=== PATIENT | female | born 1935 | race Caucasian/White ===

== ENCOUNTER 2017-04-19 19:06 | Inpatient (IN) | payer MEDICARE, OTHER ==
[~2017-04-19] VITALS: Ht 160 cm; Wt 63.6 kg
--- NOTE | ~2017-04-19 | EKG ---
[place], [place] ELECTROCARDIOGRAM REPORT NAME: RICA PATRICIO UNIT #: [id number] ROOM: 525 DOCTOR: JAYLEN OLIVEROS MD BIRTHDATE: [birth year] DOS: 04/19/2017 TIME: 1951 IMPRESSION: Sinus tachycardia; inferior CT, age indeterminate, abnormal ECG. No prior EKGs to compare. Jaylen Oliveros MD CM:EKGRPT:ELECTROCARDIOGRAM REPORT 12 22 JAYLEN OLIVEROS MD
[2017-04-19 19:32] VITALS: BP 121/69
[2017-04-19 20:05] LABS: BASO % 0.2 % (0.0-1.0); HEMATOCRIT 42.1 % (37.0-47.0); HEMOGLOBIN 14.1 g/dl (12.0-16.0); LYMPH # 0.7 10*3/uL (1.3-4.4); LYMPH % 5.2 % (27.0-41.0); MEAN CELL VOLUME 85.7 fl (81.0-99.0); MEAN CORPUSCULAR HGB 28.7 pg (27.0-31.0); MEAN CORPUSCULAR HGB CONC 33.5 g/dl (33.0-37.0); MEAN PLATELET VOLUME 10.8 fl (9.6-12.3); MONO # 1.3 10*3/uL (0.1-1.0); MONO % 10.1 % (3.0-9.0); NEUT # 11.1 10*3/uL (2.3-7.9); NEUT % 84.1 % (47.0-73.0); PLATELET COUNT AUTOMATED 209 10*3/uL (130-400); RED BLOOD COUNT 4.91 10*6/uL (4.10-5.10); RED CELL DISTRI WIDTH 13.2 % (0-14.5); WHITE BLOOD COUNT 13.2 10*3/uL (4.8-10.8)
[2017-04-19 20:21] LABS: ALBUMIN 3.7 gm/dl (3.1-4.5); ALKALINE PHOSPHATASE 84 U/L (45-117); BUN 12 mg/dl (7-24); CHLORIDE 96 mmol/L (98-107); CREATININE 0.96 mg/dL (0.55-1.02); SGOT/AST 21 IU/L (3-35); SGPT/ALT 16 U/L (12-78); SODIUM 131 mmol/L (136-145); TOTAL PROTEIN 7.8 gm/dL (6.4-8.2)
[2017-04-19 20:22] LABS: TROPONIN I < 0.015 ng/ml (<0.045)
[2017-04-19 22:50] VITALS: BP 133/77
[2017-04-19 23:00] VITALS: BP 131/64
[2017-04-19] MEDS ORDERED: Synthroid,Lev100 MCG PO (23:13)
[2017-04-20] VITALS: BP 131/64
[2017-04-20 04:54] LABS: BILIRUBIN NEGATIVE (NEGATIVE); BLOOD TRACE-LYSED (NEGATIVE); CLARITY SL CLOUDY (CLEAR); COLOR YELLOW (YELLOW); GLUCOSE NEGATIVE (NEGATIVE); KETONE 1+ (NEGATIVE); LEUKO ESTERASE 2+ (NEGATIVE); NITRITE NEGATIVE (NEGATIVE); SPECIFIC GRAVITY 1.015 (1.005-1.030); UROBILINOGEN 0.2 E.U./dl (0.2-1.0)
[2017-04-20 05:06] LABS: EPITHELIAL CELLS 20-25
[2017-04-20 05:07] LABS: BACTERIA 1+
[2017-04-20 06:53] LABS: HEMATOCRIT 38.4 % (37.0-47.0); HEMOGLOBIN 12.8 g/dl (12.0-16.0); MEAN CELL VOLUME 87.3 fl (81.0-99.0); MEAN CORPUSCULAR HGB 29.1 pg (27.0-31.0); MEAN CORPUSCULAR HGB CONC 33.3 g/dl (33.0-37.0); MEAN PLATELET VOLUME 11.2 fl (9.6-12.3); PLATELET COUNT AUTOMATED 165 10*3/uL (130-400); RED CELL DISTRI WIDTH 13.2 % (0-14.5); WHITE BLOOD COUNT 9.2 10*3/uL (4.8-10.8)
[2017-04-20 07:10] LABS: ALKALINE PHOSPHATASE 65 U/L (45-117); BUN 12 mg/dl (7-24); CHLORIDE 102 mmol/L (98-107); CHOLESTEROL 167 mg/dL (<200); CREATININE 0.86 mg/dL (0.55-1.02); HDL CHOLESTEROL 71 mg/dl (40-60); LDL CHOLESTEROL 87 mg/dL (9-159); PHOSPHOROUS 2.5 mg/dL (2.5-4.9); SGOT/AST 25 IU/L (3-35); SGPT/ALT 12 U/L (12-78); SODIUM 136 mmol/L (136-145); TOTAL PROTEIN 6.6 gm/dL (6.4-8.2); TRIGLYCERIDES 47 mg/dl (<150); VLDL CHOLESTEROL 9 mg/dL (6-40)
[2017-04-20 07:13] LABS: INTERNATIONAL NORM RATIO 1.1 (2.0-3.5)
[2017-04-20 07:15] LABS: THYROID STIM HORMONE (HS) 0.706 uIU/ml (0.358-4.75)
[2017-04-20 07:30] LABS: BURR CELLS FEW; PLATELET SUFFICIENCY NORMAL (NORMAL); TOTAL CELLS COUNTED 100 #CELLS
[2017-04-20 07:50] LABS: VITAMIN D, 25-HYDROXY 11.7 ng/mL (30-100)
[2017-04-20 08:00] VITALS: BP 107/53
[2017-04-20 12:00] VITALS: BP 114/49
[2017-04-20 16:00] VITALS: BP 111/63
[2017-04-20 20:00] VITALS: BP 110/52
[2017-04-21] VITALS: BP 103/49
[2017-04-21 08:00] VITALS: BP 108/55
[2017-04-21 12:00] VITALS: BP 105/46
[2017-04-21] MEDS ORDERED: DOXYCYCLINE100 M3 PO (14:09)
[2017-04-21] MEDS ORDERED: PREDNISONE10 MG PO (14:09)
[2017-04-21] MEDS ORDERED: VITAMIN D-32000 UNI1 PO (14:09)
[2017-04-21 16:00] VITALS: BP 123/62
[2017-04-23 00:04] LABS: ADENOVIRUS Negative (Negative); INFLUENZA A Negative (Negative); INFLUENZA B Negative (Negative); METAPNEUMOVIRUS Negative (Negative); PARAINFLUENZA 1 Negative (Negative); PARAINFLUENZA 2 Negative (Negative); PARAINFLUENZA 3 Negative (Negative); RHINOVIRUS Negative (Negative); RSV A Negative (Negative); RSV B Positive (Negative)
== END 2017-04-21 17:19 | disposition home or self-care (01) | DRG 871 ==
LOC: ED 19:06 → 5E 22:04 → EDHOLD 22:04 → 5E 22:12
PROVIDERS: Hospitalist; Student in an Organized Health Care Education/Training Program
DX: A41.9 Sepsis, unspecified organism (principal); J18.9 Pneumonia, unspecified organism; E44.0 Moderate protein-calorie malnutrition; E87.1 Hypo-osmolality and hyponatremia; E87.8 Other disorders of electrolyte and fluid balance, not elsewhere classified; Z96.649 Presence of unspecified artificial hip joint; R73.9 Hyperglycemia, unspecified; E55.9 Vitamin D deficiency, unspecified; E03.9 Hypothyroidism, unspecified; Z90.710 Acquired absence of both cervix and uterus; Z87.81 Personal history of (healed) traumatic fracture; Z82.49 Family history of ischemic heart disease and other diseases of the circulatory system; Z82.3 Family history of stroke; Z80.9 Family history of malignant neoplasm, unspecified; Z79.899 Other long term (current) drug therapy; Z98.41 Cataract extraction status, right eye; Z68.24 Body mass index [BMI] 24.0-24.9, adult

== ENCOUNTER 2017-05-08 12:04 | Inpatient (IN) | payer MEDICARE, OTHER ==
[~2017-05-08] VITALS: Ht 160 cm; Wt 63.5 kg
--- NOTE | ~2017-05-08 | EKG ---
[place], [place] ELECTROCARDIOGRAM REPORT NAME: RICA PATRICIO UNIT #: [id number] ROOM: 405 DOCTOR: RIA VALLADARES MD BIRTHDATE: [birth year] DOS: 05/08/2017 TIME: 1226 hours. Sinus tachycardia at 103 beats per minute. An old inferior wall myocardial infarction. An abnormal ECG. No previous tracing is available for comparison. RIA VALLADARES MD CM:EKGRPT:ELECTROCARDIOGRAM REPORT [id number] RIA VALLADARES MD
--- NOTE | ~2017-05-08 | PR ---
[place], [place] PROGRESS NOTE NAME: RICA PATRICIO [facility] #: [id number] UNIT #: [id number] ROOM: 405 DOCTOR: ISAI URENA MD,KAREN BIRTHDATE: [birth year] DOS: 05/11/2017 The patient is independently seen and examined in [id number] encounter. History was confirmed. Physical examination was performed. Assessment and management of the patient's today's note was personally completed. The note done by the medical representative was approved as well. SUBJECTIVE: The patient reported symptoms of cough, which has been described to be nonproductive at this time. Denies symptoms of chest pain or hemoptysis. Overall, reduction of the respiratory symptoms of the patient was described. PHYSICAL EXAMINATION: VITAL SIGNS: Temperature normal, respiratory rate of 18, heart rate 88, blood pressure normal. The pulse oxygen saturation on room air is 96% saturation. LUNGS: Occasional scattered crackles in the lung bases. There was no wheezing. ABDOMEN: Soft, nontender. EXTREMITIES: Without any edema. SKIN: Visible skin, no lesions or rashes. MUSCULOSKELETAL: Without any acute deformities. CENTRAL NERVOUS SYSTEM: Cranial nerves 2-12 intact. No focal deficits. IMAGING STUDIES AND LABORATORY DATA: Chest x-ray of the patient that was done this morning for the patient 2-view was personally reviewed, shows partial reduction of previous infiltration, the resolution was noted incomplete. Vancomycin trough level was noted 7.5. IMPRESSION AND PLAN: The patient with clinical resolution of the pneumonia noted with some radiological resolution as well. Because of the lack of any additional culture supporting the broad spectrum intravenous antibiotic, the patient will be continued on Levaquin as the only antibiotic. Continue corticosteroids; however, the dose will be decreased to 40 mg b.i.d. for the medical management of the suspected cryptogenic organizing pneumonia. However, with reduction of the corticosteroids, closely monitor respiratory symptom. The patient has not been noted with any other acute abnormality or side effect related to current medication use. Usual care. She refused the bronchoscopy, so accurate culture for further assessment could not be performed and there was no sputum culture done for this patient as the patient's cough has been currently noted nonproductive. [place], [place] PROGRESS NOTE NAME: RICA PATRICIO Carl [facility] #: [id number] UNIT #: [id number] ROOM: 405 DOCTOR: KAREN PRAJAPATI MD BIRTHDATE: [birth year] KAREN ALEX MD CM:PNTRANS [id number] KAREN URENA MD 05/12/17 0120 interface
--- NOTE | ~2017-05-08 | CON ---
[place], [place] REPORT OF CONSULTATION NAME: RICA PATRICIO [facility] #: [id number] UNIT #: [id number] ROOM: 405 DOCTOR: KAREN PRAJAPATI MD BIRTHDATE: [birth year] DOS: 05/09/2017 CONSULTATION REQUESTED BY: Hospitalist Service. REASON FOR CONSULTATION: Assessment of the acute pneumonia. HISTORY OF PRESENT ILLNESS: This is a 81-year-old white female patient who was reported having ongoing symptoms for the past few weeks. The symptom was started with gradual worsening in the beginning of April. She has been admitted in this hospital on 04/19/2017 until 04/21/2017 and treated at that time for the acute pneumonia as described by the patient. The patient stated the symptoms have been noted progressively worsened and not resolved with increased coughing. The coughing has been noted severe with chest congestion with inability to expectorate sputum. The symptoms were associated with wheezing as well. Denies any symptoms of chest pain, but chest tightness was reported. The patient denies any symptoms of hemoptysis. Denies symptoms of chest trauma. She has been readmitted to the hospital on 05/08/2017 for the medical management of the current acute symptoms. REVIEW OF SYSTEMS: CONSTITUTIONAL SYMPTOMS: Fatigue and tiredness reported. No symptoms of fever or chills. EYES: Denies any burning, redness, or tenderness. EARS, NOSE, AND THROAT SYMPTOMS: Denies sore throat, hoarseness, otalgia, or postnasal drainage. CARDIOVASCULAR: The patient does complain of some sinus pressures. GASTROINTESTINAL: Denies dysphagia, nausea, vomiting, diarrhea, abdominal pain, hematemesis, melena, or hematochezia. GENITOURINARY SYMPTOMS: Denies dysuria, suprapubic pain, or hematuria. CENTRAL NERVOUS SYSTEM: Denies any symptoms of headache. The patient is complaining of dizziness yesterday and double vision upon awakening, which has been resolved. SKIN: Denies any lesions or rashes. MUSCULOSKELETAL: Denies acute joint pain at this time, but reported with muscular pain and some joint pain on admission seemed to be better. The rest of the symptoms were reviewed. They were noted all negative. PAST MEDICAL HISTORY: Reported: 1. History of hypothyroidism. 2. Vitamin D deficiency. 3. Recent admission in 04/2017 for the medical management of acute pneumonia. PAST SURGICAL HISTORY: Reported as: 1. Complete hysterectomy. 2. Surgery on the hip. The hip surgery was done bilateral after fracture. SOCIAL HISTORY: The patient is a nonsmoker lifetime. Lives at home, and has 6 children. There was no history of the occupation-related pulmonary exposure or any inhalation of dust. [place], [place] REPORT OF CONSULTATION NAME: RCIA PATRICIO UNIT #: [id number] ROOM: 405 DOCTOR: KAREN PRAJAPATI MD BIRTHDATE: [birth year] FAMILY HISTORY: Father at the age of 6666 years old of complication of metastatic prostate cancer. Mother at 66 years old of complication-related hypertension. HOME MEDICATIONS: Noted as use of vitamin D and Synthroid. DRUG ALLERGY HISTORY: Noted no known drug allergies. PHYSICAL EXAMINATION: GENERAL: This is a 81-year-old white female who appeared to have a cough with chest congestion at the time of the assessment this morning. She does not have signs of acute respiratory distress. VITAL SIGNS: Height were recorded by the nursing staff for the current admission with height of 5 feet 3 inches, weight of 140 pounds, BMI 24.8. Vital signs as a normal temperature, respiratory rate 18-20, heart rate 91-76, blood pressure 116/44-111/49. The pulse oxygen saturation on 2 liters nasal cannula 92% saturation. HEENT: Head was atraumatic. Eyes nonicterus. Oral mucosa was moist. NECK: Supple. CARDIOVASCULAR: S1, S2 audible. LUNGS: Noted with coarse crackles heard in the mid to lower portion of the right lung. Scattered wheezing. ABDOMEN: Soft, nontender. EXTREMITIES: No edema, clubbing, or cyanosis. MUSCULOSKELETAL SYMPTOMS: Without any acute deformities. CENTRAL NERVOUS SYSTEM: Intact. Cranial nerves 2-12 intact. LABORATORY DATA: The CMP on admission yesterday - BUN and creatinine were normal, sodium 133. LFTs were normal. PT/PTT yesterday were normal. Lactic acid yesterday 2.8, followup 1.6. CBC of 05/08/2017 - WBC count 15.6, hemoglobin and hematocrit normal, platelet count was normal. The ordered differential was noted as 89% neutrophils. The CBC of 05/09/2017 today - WBC count 12.4, remaining CBC was normal with 85% neutrophils. CMP this morning - BUN and creatinine normal, sodium was normal. Review of the radiology data - CT of the head on 05/08/2017 was described without any acute intracranial abnormalities. The chest x-ray that was done on past admission on 04/19/2017, bilateral basilar areas of infiltration was noted. Only one-view chest x-ray was done. The chest x-ray that was done yesterday shows increased area of infiltration in the lower lungs. The chest CT scan was obtained yesterday ____ in the lower lungs bilaterally. IMPRESSION: The patient who has been currently admitted to the hospital noted with previous treatment for presumed acute pneumonia. The nasal washing antigen negative with current worsening, suggestive of acute pneumonia with bacteria, normal bacterial etiology would be considered. The patient has been treated with appropriate antibiotic, previous Levaquin and doxycycline that had not resulted in resolution of symptoms completely with increased symptoms noted. Wheezing was noted, most likely secondary bronchospasm, current acute ongoing pulmonary infection and not noted with finding of bronchial asthma. [place], [place] REPORT OF CONSULTATION NAME: RICA PATRICIO Carl UNIT #: [id number] ROOM: 405 DOCTOR: ISAI URENA MD,[facility] BIRTHDATE: [birth year] PLAN OF TREATMENT: The patient has been started on Solu-Medrol. We should able to treat current differential diagnosis cryptogenic organizing pneumonia or acute eosinophilic pneumonia. The dose; however, will be increased to 60 mg q.8 hours for the patient at least 24 hours or greater, then further reduced. She has been started on 3 different antibiotics - Levaquin, vancomycin and Rocephin. Reduction of the antibiotic de-escalation will be done based on the improvement in the symptoms. The sputum for Gram-stain culture has been ordered. Bronchodilator to help mobilize secretions as well. Use of the flutter valve to help mobilize secretion. Consider bronchoscopy for further assessment of the lower portion of the lung with more accurate culture assessment as well. Supportive care. Other therapy, plan of management and care. The urine for legionella antigen will be ordered. Urine for streptococcal pneumonia antigen will be obtained as well. IgE level was ordered as well. Thank you for allowing me to participate in the care of this patient. KAREN ALEX MD CM:CONSTR:REPORT OF CONSULTATION 1328 05/10/17 0407 interface
--- NOTE | ~2017-05-08 | PR ---
[place], [place] PROGRESS NOTE NAME: RICA PATRICIO [facility] #: [id number] UNIT #: [id number] ROOM: 405 DOCTOR: ISAI URENA MD,KAREN BIRTHDATE: [birth year] DOS: 05/10/2017 SUBJECTIVE: The patient was still reported with coughing. The patient's symptoms of shortness of breath have been decreased. Denies any chest pain. Denies symptoms of hemoptysis, headache, nausea, vomiting, diarrhea, or abdominal pain. She denies any symptoms of edema or pain of the lower extremities. She is comfortably, resting, sitting on the bed. OBJECTIVE: VITAL SIGNS: Normal temperature, respiratory rate 18, heart rate 102, blood pressure 129/52. The pulse oxygen saturation on room air 93% saturation. HEENT: No acute change. NECK: Supple. CARDIOVASCULAR: S1, S2 audible. LUNGS: Scattered crackles of the lung noted, greater on the right than the left side. There was no wheezing. ABDOMEN: Soft, nontender. EXTREMITIES: Without any acute edema. SKIN: Visible skin, no lesions or rashes. MUSCULOSKELETAL: No deformities. LABORATORY DATA: The patient's CBC today, WBC count 12.8, hemoglobin 11.9, hematocrit 36.5, platelet count was normal. The CMP of the patient this morning, normal BUN and creatinine. Albumin 2.7. Blood culture from 05/08/2017 showed no bacterial growth. IMPRESSION: Multiple areas of infiltration was noted for this patient on current admission with acute bacterial pneumonia, which has been treated with antibiotics with partial improvement noted and respiratory symptom reduction. The organism isolation so far has not been available. The diagnosis of cryptogenic organizing pneumonia was also considered at this time. The patient was treated with corticosteroids. The dose of corticosteroids was increased yesterday to 60 mg q. 8 hours. PLAN OF TREATMENT: Continue current therapy, plan of management, bronchodilators, oxygen supplementation, corticosteroids. She was suggested for fiberoptic bronchoscopy, which would be helpful to differentiate her current problem, more accurately [place] pneumonia and to modify the therapy accordingly; however, the patient does not wish to have any procedure done at this time and would like to be treated conservatively. Based on her wishes, the patient will be continued on current therapy, plan and management, changes in medical management will be done accordingly to the needs. [place], [place] PROGRESS NOTE NAME: RICA PATRICIO UNIT #: [id number] ROOM: 405 DOCTOR: KAREN PRAJAPATI MD BIRTHDATE: [birth year] KAREN ALEX MD CM:PNTRANS [id number] KAREN URENA MD 05/11/1736 interface
--- NOTE | ~2017-05-08 | PR ---
[place], [place] PROGRESS NOTE NAME: RICA PATRICIO UNIT #: [id number] ROOM: 405 DOCTOR: JAMEY JARAMILLO DO BIRTHDATE: [birth year] DOS: 05/11/2017 SUBJECTIVE: The patient is seen and examined at bedside. The patient is sitting upright. The patient reports that her respiratory symptoms have improved and she no longer has a productive cough; however, she does have mild persistent cough. The patient denies any shortness of breath at this time, no new complaints. OBJECTIVE: VITAL SIGNS: Temperature 97.5, pulse is 88, respirations 16, blood pressure 109/57, pulse ox is 96% on room air. GENERAL APPEARANCE: Awake, alert and oriented x 3, no acute distress. HEENT: Right eye was occluded with an eye patch. Left eye was clear. No injection. Nares are patent. Mucous membranes are moist. NECK: Supple, nontender. CARDIOVASCULAR: Regular rate and rhythm. No murmurs, gallops or rubs. PULMONARY: Clear to auscultation. No wheezes, rales or rhonchi. ABDOMEN: Soft, nontender with positive bowel sounds. Blood cultures and sputum cultures remain negative. Chest x-ray this morning showed mild to moderate posterior basilar pneumonia bilaterally, stable compared to a CT from May 08. IMPRESSIONS: 1. Multiple areas infiltration, likely secondary to acute bacterial pneumonia. 2. Double vision. 3. Severe protein-calorie malnutrition. TREATMENT PLAN: The steroids will be titrated down to 40 b.i.d. and the antibiotics will be deescalated to Levaquin only. Continue with the bronchodilators for shortness of breath. We will continue to follow. The patient will likely be stable and ready for discharge, possibly tomorrow. The patient continues to improve. JAMEY JARAMILLO DO [place], [place] PROGRESS NOTE NAME: RICA PATRICIO UNIT #: [id number] ROOM: 405 DOCTOR: JAMEY JARAMILLO DO BIRTHDATE: [birth year] KAREN ALEX MD CM:SAMUEL [id number] JAMEY JARAMILLO DO 05/11/17 232 interface
--- NOTE | ~2017-05-08 | PR ---
[place], [place] PROGRESS NOTE NAME: RICA PATRICIO [facility] #: [id number] UNIT #: [id number] ROOM: 405 DOCTOR: ISAI URENA MD,KAREN BIRTHDATE: [birth year] DOS: 05/12/2017 SUBJECTIVE: She has been still noted coughing, which has been gradually subsiding. Denies symptoms of chest pain. Denies any symptoms of wheezing. Stated that she has been feeling better. OBJECTIVE: VITAL SIGNS: Normal temperature, respiratory rate 20, heart rate 94, blood pressure 125/65, pulse oxygen saturation on room air 93% saturation. HEENT: No acute change. NECK: Supple. CARDIOVASCULAR: S1, S2 audible. LUNGS: Scattered crackles in the lungs. The patient with scattered expiratory wheezing. EXTREMITIES: Without any acute edema. IMPRESSION: Resolving acute exacerbation of chronic obstructive pulmonary disease as well as acute bilateral pneumonia for this patient slowly. The cough and wheezing was still noted, but gradually improving. PLAN OF MANAGEMENT: The patient could be discharged home. Tapering dose of prednisone and antibiotics orally with bronchodilators. The patient does not wish to get the bronchoscopy done and conservative treatment will be advised for the patient upon discharge. KAREN ALEX MD CM:PNTRANS 40 KAREN URENA MD 05/12/172039 interface
[~2017-05-08 12:04] MED LIST: DOXYCYCLINE100 M3 PO; PREDNISONE10 MG PO; Synthroid,Lev100 MCG PO; VITAMIN D-32000 UNI1 PO
[2017-05-08 12:08] VITALS: BP 134/64
[2017-05-08] MEDS ORDERED: ASPIRIN325 M2 PO (12:09)
[2017-05-08 12:23] VITALS: BP 122/71
[2017-05-08 13:04] LABS: BASO % 0.2 % (0.0-1.0); EOS % 0.1 % (1.0-4.0); HEMATOCRIT 45.6 % (37.0-47.0); HEMOGLOBIN 14.9 g/dl (12.0-16.0); LYMPH # 0.7 10*3/uL (1.3-4.4); LYMPH % 4.5 % (27.0-41.0); MEAN CELL VOLUME 87.4 fl (81.0-99.0); MEAN CORPUSCULAR HGB 28.5 pg (27.0-31.0); MEAN CORPUSCULAR HGB CONC 32.7 g/dl (33.0-37.0); MONO # 0.9 10*3/uL (0.1-1.0); MONO % 5.6 % (3.0-9.0); NEUT # 13.9 10*3/uL (2.3-7.9); NEUT % 89.2 % (47.0-73.0); PLATELET COUNT AUTOMATED 234 10*3/uL (130-400); RED BLOOD COUNT 5.22 10*6/uL (4.10-5.10); RED CELL DISTRI WIDTH 13.9 % (0-14.5); WHITE BLOOD COUNT 15.6 10*3/uL (4.8-10.8)
[2017-05-08 13:13] LABS: ACT PARTIAL THROMBO TIME 25.1 SECONDS (20.8-31.5)
[2017-05-08 13:20] LABS: ALBUMIN 3.4 gm/dl (3.1-4.5); ALKALINE PHOSPHATASE 106 U/L (45-117); BUN 12 mg/dl (7-24); CHLORIDE 99 mmol/L (98-107); CREATININE 0.85 mg/dL (0.55-1.02); LIPASE 157 U/L (73-393); POTASSIUM 4.2 mmol/L (3.5-5.1); SGOT/AST 14 IU/L (3-35); SGPT/ALT 18 U/L (12-78); SODIUM 133 mmol/L (136-145); TOTAL PROTEIN 7.5 gm/dL (6.4-8.2)
[2017-05-08 13:26] LABS: TROPONIN I < 0.015 ng/ml (<0.045)
[2017-05-08 14:46] VITALS: BP 124/60
[2017-05-08 15:30] VITALS: BP 113/58
[2017-05-08 16:00] VITALS: BP 113/58
[2017-05-08 20:00] VITALS: BP 96/69
[2017-05-09] VITALS: BP 116/44
[2017-05-09 07:51] LABS: BASO % 0.2 % (0.0-1.0); EOS # 0.1 10*3/uL (0.0-0.4); EOS % 0.5 % (1.0-4.0); LYMPH # 0.9 10*3/uL (1.3-4.4); LYMPH % 7.6 % (27.0-41.0); MEAN CELL VOLUME 86.3 fl (81.0-99.0); MEAN CORPUSCULAR HGB 28.5 pg (27.0-31.0); MEAN CORPUSCULAR HGB CONC 33.1 g/dl (33.0-37.0); MONO # 0.7 10*3/uL (0.1-1.0); MONO % 5.8 % (3.0-9.0); NEUT # 10.6 10*3/uL (2.3-7.9); NEUT % 85.3 % (47.0-73.0); PLATELET COUNT AUTOMATED 207 10*3/uL (130-400); RED BLOOD COUNT 4.31 10*6/uL (4.10-5.10); WHITE BLOOD COUNT 12.4 10*3/uL (4.8-10.8)
[2017-05-09 07:52] LABS: HEMATOCRIT 37.2 % (37.0-47.0); HEMOGLOBIN 12.3 g/dl (12.0-16.0)
[2017-05-09 08:00] VITALS: BP 111/49
[2017-05-09 08:22] LABS: ALBUMIN 2.6 gm/dl (3.1-4.5); BUN 9 mg/dl (7-24); CHLORIDE 105 mmol/L (98-107); CHOLESTEROL 168 mg/dL (<200); CREATININE 0.67 mg/dL (0.55-1.02); POTASSIUM 3.7 mmol/L (3.5-5.1); SGOT/AST 12 IU/L (3-35); SODIUM 137 mmol/L (136-145)
[2017-05-09 08:29] LABS: ALKALINE PHOSPHATASE 82 U/L (45-117); HDL CHOLESTEROL 62 mg/dl (40-60); LDL CHOLESTEROL 90 mg/dL (9-159); SGPT/ALT 12 U/L (12-78); TOTAL PROTEIN 5.9 gm/dL (6.4-8.2); TRIGLYCERIDES 79 mg/dl (<150); VLDL CHOLESTEROL 16 mg/dL (6-40)
[2017-05-09 09:54] LABS: VITAMIN D, 25-HYDROXY 9.1 ng/mL (30-100)
[2017-05-09 12:00] VITALS: BP 114/50
[2017-05-09 16:00] VITALS: BP 103/65
[2017-05-09 20:00] VITALS: BP 120/74
[2017-05-10] VITALS: BP 106/57
[2017-05-10 06:16] LABS: ALBUMIN 2.7 gm/dl (3.1-4.5); ALKALINE PHOSPHATASE 94 U/L (45-117); BUN 9 mg/dl (7-24); CHLORIDE 105 mmol/L (98-107); CREATININE 0.91 mg/dL (0.55-1.02); PHOSPHOROUS 2.1 mg/dL (2.5-4.9); POTASSIUM 4.2 mmol/L (3.5-5.1); SGOT/AST 11 IU/L (3-35); SGPT/ALT 13 U/L (12-78); SODIUM 139 mmol/L (136-145); TOTAL PROTEIN 6.6 gm/dL (6.4-8.2)
[2017-05-10 06:42] LABS: HEMATOCRIT 36.5 % (37.0-47.0); HEMOGLOBIN 11.9 g/dl (12.0-16.0); MEAN CELL VOLUME 86.7 fl (81.0-99.0); MEAN CORPUSCULAR HGB 28.3 pg (27.0-31.0); MEAN CORPUSCULAR HGB CONC 32.6 g/dl (33.0-37.0); MEAN PLATELET VOLUME 11.5 fl (9.6-12.3); PLATELET COUNT AUTOMATED 233 10*3/uL (130-400); RED BLOOD COUNT 4.21 10*6/uL (4.10-5.10); WHITE BLOOD COUNT 12.8 10*3/uL (4.8-10.8)
[2017-05-10 07:12] LABS: TOTAL CELLS COUNTED 100 #CELLS
[2017-05-10 07:13] LABS: ACANTHOCYTES FEW; BURR CELLS MODERATE; PLATELET SUFFICIENCY NORMAL (NORMAL)
[2017-05-10 08:00] VITALS: BP 111/51
[2017-05-10 12:00] VITALS: BP 129/52
[2017-05-10 16:00] VITALS: BP 119/58
[2017-05-10 20:00] VITALS: BP 104/49
[2017-05-11] VITALS: BP 120/87
[2017-05-11 07:50] VITALS: BP 124/72
[2017-05-11 11:50] VITALS: BP 109/57
[2017-05-11 16:00] VITALS: BP 129/63
[2017-05-11 20:00] VITALS: BP 115/57
[2017-05-12] VITALS: BP 119/54
[2017-05-12 07:33] VITALS: BP 125/65
[2017-05-12] MEDS ORDERED: MUCINEX ER600 MG PO (09:22)
[2017-05-12] MEDS ORDERED: LEVAQUIN750 M1 PO (09:22)
== END 2017-05-12 11:05 | disposition home or self-care (01) | DRG 871 ==
LOC: ED 12:04 → 4E 14:15 → EDHOLD 14:15 → 4E 14:25
PROVIDERS: Emergency Medicine; Internal Medicine; Registered Nurse
DX: A41.9 Sepsis, unspecified organism (principal); E43 Unspecified severe protein-calorie malnutrition; J15.9 Unspecified bacterial pneumonia; J44.1 Chronic obstructive pulmonary disease with (acute) exacerbation; J44.0 Chronic obstructive pulmonary disease with (acute) lower respiratory infection; R65.20 Severe sepsis without septic shock; E03.9 Hypothyroidism, unspecified; R53.83 Other fatigue; E55.9 Vitamin D deficiency, unspecified; D72.828 Other elevated white blood cell count; H53.2 Diplopia; Z68.24 Body mass index [BMI] 24.0-24.9, adult; Z90.710 Acquired absence of both cervix and uterus; Z98.41 Cataract extraction status, right eye; Z82.49 Family history of ischemic heart disease and other diseases of the circulatory system; Z82.3 Family history of stroke; Z80.42 Family history of malignant neoplasm of prostate; Z79.899 Other long term (current) drug therapy; Z87.828 Personal history of other (healed) physical injury and trauma

== ENCOUNTER → 2017-07-06 | Outpatient (CLI) | payer MEDICARE, OTHER ==
[~2017-07-06] MED LIST changes: +ASPIRIN325 M2 PO; +LEVAQUIN750 M1 PO; +MUCINEX ER600 MG PO
[2017-07-06 11:53] LABS: ALBUMIN 3.7 gm/dl (3.1-4.5)
[2017-07-06 12:01] LABS: FREE T4 1.2 ng/dl (0.76-1.46); THYROID STIM HORMONE (HS) 2.3 uIU/ml (0.358-4.75)
[2017-07-06 12:12] LABS: PTH INTACT 119.1 pg/mL (14.0-72.0)
== END | disposition home or self-care (01) ==
LOC: LAB 11:04
PROVIDERS: Internal Medicine
DX: E03.9 Hypothyroidism, unspecified (principal); E55.9 Vitamin D deficiency, unspecified

== ENCOUNTER → 2018-10-05 | Outpatient (CLI) | payer MEDICARE, OTHER ==
[~2018-10-05] MED LIST changes: +SEPTDS PO
== END | disposition home or self-care (01) ==
LOC: ORTHO 00:32
DX: S42.295D Other nondisplaced fracture of upper end of left humerus, subsequent encounter for fracture with routine healing (principal); X58.XXXD Exposure to other specified factors, subsequent encounter

== ENCOUNTER → 2018-11-06 | Outpatient (CLI) | payer MEDICARE, OTHER | END | disposition home or self-care (01) | LOC: ORTHO 01:50 | DX: S42.295D Other nondisplaced fracture of upper end of left humerus, subsequent encounter for fracture with routine healing (principal); X58.XXXD Exposure to other specified factors, subsequent encounter ==

== ENCOUNTER 2020-10-10 06:45 | Inpatient (IN) | payer MEDICARE, OTHER ==
[~2020-10-10] VITALS: Ht 160 cm; Wt 73.0 kg
[2020-10-10] VITALS (12 sets, daily range): BP systolic 103–129; BP diastolic 44–77
[2020-10-10 07:22] LABS: BASO % 0.6 % (0.0-1.0); EOS # 0.2 10*3/uL (0.0-0.4); EOS % 3.9 % (1.0-4.0); HEMATOCRIT 35.4 % (37.0-47.0); LYMPH # 1.5 10*3/uL (1.3-4.4); LYMPH % 31.3 % (27.0-41.0); MEAN CELL VOLUME 87.4 fl (81.0-99.0); MEAN CORPUSCULAR HGB 28.4 pg (27.0-31.0); MEAN CORPUSCULAR HGB CONC 32.5 g/dl (33.0-37.0); MEAN PLATELET VOLUME 10.6 fl (9.6-12.3); MONO # 0.6 10*3/uL (0.1-1.0); MONO % 11.9 % (3.0-9.0); NEUT # 2.5 10*3/uL (2.3-7.9); NEUT % 51.9 % (47.0-73.0); PLATELET COUNT AUTOMATED 193 10*3/uL (130-400); RED BLOOD COUNT 4.05 10*6/uL (4.10-5.10); RED CELL DISTRI WIDTH 13.9 % (0-14.5); WHITE BLOOD COUNT 4.9 10*3/uL (4.8-10.8)
[2020-10-10 07:38] LABS: ACT PARTIAL THROMBO TIME 24.9 SECONDS (20.0-32.1); INTERNATIONAL NORM RATIO 1.1 (2.0-3.5)
[2020-10-10 07:42] LABS: ALBUMIN 2.8 gm/dl (3.1-4.5); ALKALINE PHOSPHATASE 54 U/L (45-117); BUN 17 mg/dl (7-24); CHLORIDE 112 mmol/L (98-107); CREATININE 0.82 mg/dL (0.55-1.02); POTASSIUM 3.1 mmol/L (3.5-5.1); SGOT/AST 13 IU/L (3-35); SGPT/ALT 14 U/L (12-78); SODIUM 139 mmol/L (136-145); TOTAL PROTEIN 5.6 gm/dL (6.4-8.2)
[2020-10-10] MEDS ORDERED: LEVOTHYROXINE125 MCG PO (10:12)
[2020-10-10 13:37] LABS: BASO % 0.3 % (0.0-1.0); EOS % 0.6 % (1.0-4.0); HEMATOCRIT 37.8 % (37.0-47.0); LYMPH % 14.4 % (27.0-41.0); MEAN CELL VOLUME 88.9 fl (81.0-99.0); MEAN CORPUSCULAR HGB 28.5 pg (27.0-31.0); MEAN PLATELET VOLUME 10.7 fl (9.6-12.3); MONO # 0.5 10*3/uL (0.1-1.0); MONO % 6.9 % (3.0-9.0); NEUT # 5.4 10*3/uL (2.3-7.9); NEUT % 77.4 % (47.0-73.0); PLATELET COUNT AUTOMATED 181 10*3/uL (130-400); RED BLOOD COUNT 4.25 10*6/uL (4.10-5.10); RED CELL DISTRI WIDTH 13.9 % (0-14.5); WHITE BLOOD COUNT 6.9 10*3/uL (4.8-10.8)
[2020-10-11] VITALS: BP 118/52
[2020-10-11 05:48] LABS: ALBUMIN 3.2 gm/dl (3.1-4.5); ALKALINE PHOSPHATASE 58 U/L (45-117); BUN 12 mg/dl (7-24); CHLORIDE 111 mmol/L (98-107); CHOLESTEROL 205 mg/dL (<200); CREATININE 0.83 mg/dL (0.55-1.02); FREE T4 1.02 ng/dl (0.76-1.46); LDL CHOLESTEROL 131 mg/dL (9-159); SGOT/AST 13 IU/L (3-35); SGPT/ALT 17 U/L (12-78); SODIUM 138 mmol/L (136-145); TOTAL PROTEIN 6.1 gm/dL (6.4-8.2); TRIGLYCERIDES 85 mg/dl (<150)
[2020-10-11 05:53] LABS: POTASSIUM 4.2 mmol/L (3.5-5.1)
[2020-10-11 05:54] LABS: BASO % 0.5 % (0.0-1.0); EOS # 0.2 10*3/uL (0.0-0.4); EOS % 4.2 % (1.0-4.0); HEMATOCRIT 36.6 % (37.0-47.0); LYMPH # 1.6 10*3/uL (1.3-4.4); LYMPH % 28.7 % (27.0-41.0); MEAN CELL VOLUME 88.2 fl (81.0-99.0); MEAN CORPUSCULAR HGB 28.7 pg (27.0-31.0); MEAN CORPUSCULAR HGB CONC 32.5 g/dl (33.0-37.0); MEAN PLATELET VOLUME 11.3 fl (9.6-12.3); MONO # 0.8 10*3/uL (0.1-1.0); MONO % 13.3 % (3.0-9.0); NEUT % 52.9 % (47.0-73.0); PLATELET COUNT AUTOMATED 206 10*3/uL (130-400); RED BLOOD COUNT 4.15 10*6/uL (4.10-5.10); RED CELL DISTRI WIDTH 14.3 % (0-14.5); WHITE BLOOD COUNT 5.7 10*3/uL (4.8-10.8)
[2020-10-11 06:29] LABS: VITAMIN D, 25-HYDROXY 34.4 ng/mL (30-100)
[2020-10-11 08:00] VITALS: BP 137/71
== END 2020-10-11 11:49 | disposition home or self-care (01) | DRG 811 ==
LOC: ED 06:45 → EDHOLD 08:00 → 4E 08:16
PROVIDERS: Internal Medicine; Registered Nurse; ADMIT Internal Medicine; ATTEND Internal Medicine
PROC: 30233N1 Transfusion of Nonautologous Red Blood Cells into Peripheral Vein, Percutaneous Approach (ICD-10-PCS; principal; 2020-10-10)
DX: D50.0 Iron deficiency anemia secondary to blood loss (chronic) (principal); E43 Unspecified severe protein-calorie malnutrition; E87.6 Hypokalemia; E87.8 Other disorders of electrolyte and fluid balance, not elsewhere classified; E55.9 Vitamin D deficiency, unspecified; S81.801A Unspecified open wound, right lower leg, initial encounter; E03.9 Hypothyroidism, unspecified; Z90.710 Acquired absence of both cervix and uterus; Z98.41 Cataract extraction status, right eye; Z82.49 Family history of ischemic heart disease and other diseases of the circulatory system; Z82.3 Family history of stroke; Z80.42 Family history of malignant neoplasm of prostate; X58.XXXA Exposure to other specified factors, initial encounter; Y93.89 Activity, other specified; Y92.89 Other specified places as the place of occurrence of the external cause; Y99.8 Other external cause status; Z68.28 Body mass index [BMI] 28.0-28.9, adult

== ENCOUNTER 2021-06-01 16:04 | Inpatient (IN) | payer MEDICARE, OTHER ==
[~2021-06-01] VITALS: Ht 160 cm; Wt 69.9 kg
[~2021-06-01 16:04] MED LIST changes: +LEVOTHYROXINE125 MCG PO
[2021-06-01 16:17] VITALS: BP 118/65
[2021-06-01 17:14] LABS: HEMATOCRIT 40.1 % (37.0-47.0); MANUAL DIFF REFLEX YES; MEAN CELL VOLUME 82.9 fl (81.0-99.0); MEAN CORPUSCULAR HGB 26.7 pg (27.0-31.0); MEAN CORPUSCULAR HGB CONC 32.2 g/dl (33.0-37.0); MEAN PLATELET VOLUME 10.5 fl (9.6-12.3); PLATELET COUNT AUTOMATED 326 10*3/uL (130-400); RED BLOOD COUNT 4.84 10*6/uL (4.10-5.10); RED CELL DISTRI WIDTH 13.9 % (0-14.5); WHITE BLOOD COUNT 18.3 10*3/uL (4.8-10.8)
[2021-06-01 17:26] LABS: ACT PARTIAL THROMBO TIME 29.8 SECONDS (20.0-32.1)
[2021-06-01 17:32] LABS: CREATININE 1.18 mg/dL (0.55-1.02); POTASSIUM 3.6 mmol/L (3.5-5.1); TOTAL PROTEIN 7.4 gm/dL (6.4-8.2)
[2021-06-01 17:47] LABS: PLATELET SUFFICIENCY NORMAL (NORMAL); TOTAL CELLS COUNTED 100 #CELLS
[2021-06-01 17:48] LABS: BURR CELLS MODERATE; OVALOCYTES FEW
[2021-06-01 18:28] LABS: BILIRUBIN Negative (Negative); BLOOD 1+ (Negative); CLARITY Turbid (Clear); COLOR Dark Yellow (Yellow); GLUCOSE Negative (Negative); KETONE Trace (Negative); LEUKO ESTERASE 3+ (Negative); NITRITE Positive (Negative); PH 5.5 (4.5-8.0); SPECIFIC GRAVITY 1.015 (1.001-1.030)
[2021-06-01 19:42] LABS: BACTERIA 3+; EPITHELIAL CELLS 41-50; WBC TNTC wbc/hpf (0-5)
[2021-06-01 20:50] VITALS: BP 133/64
[2021-06-02] VITALS: BP 110/88
[2021-06-02 06:41] LABS: HEMATOCRIT 33.4 % (37.0-47.0); MEAN CELL VOLUME 80.7 fl (81.0-99.0); MEAN CORPUSCULAR HGB 27.1 pg (27.0-31.0); MEAN CORPUSCULAR HGB CONC 33.5 g/dl (33.0-37.0); MEAN PLATELET VOLUME 11.2 fl (9.6-12.3); PLATELET COUNT AUTOMATED 299 10*3/uL (130-400); RED BLOOD COUNT 4.14 10*6/uL (4.10-5.10); WHITE BLOOD COUNT 12.9 10*3/uL (4.8-10.8)
[2021-06-02 06:47] LABS: MANUAL DIFF REFLEX YES
[2021-06-02 06:55] LABS: ALKALINE PHOSPHATASE 74 U/L (45-117); BUN 11 mg/dl (7-24); CHLORIDE 102 mmol/L (98-107); FREE T4 1.68 ng/dl (0.76-1.46); POTASSIUM 3.3 mmol/L (3.5-5.1); SGOT/AST 16 IU/L (3-35); SGPT/ALT 20 U/L (12-78); SODIUM 133 mmol/L (136-145)
[2021-06-02 07:02] LABS: THYROID STIM HORMONE (HS) 0.377 uIU/ml (0.358-4.75)
[2021-06-02 07:33] LABS: VITAMIN D, 25-HYDROXY 26.3 ng/mL (30-100)
[2021-06-02 07:58] VITALS: BP 110/56
[2021-06-02 08:23] LABS: BURR CELLS FEW; OVALOCYTES FEW; PLATELET SUFFICIENCY NORMAL (NORMAL); TOTAL CELLS COUNTED 100 #CELLS; TOXIC GRANULATION SLIGHT
[2021-06-02 11:56] VITALS: BP 114/61
[2021-06-02 16:00] VITALS: BP 120/65
[2021-06-02 20:00] VITALS: BP 131/69
[2021-06-03] VITALS: BP 141/76
[2021-06-03 06:39] LABS: BASO # 0.1 10*3/uL (0.0-0.1); BASO % 0.6 % (0.0-1.0); EOS # 0.2 10*3/uL (0.0-0.4); EOS % 1.8 % (1.0-4.0); HEMATOCRIT 34.2 % (37.0-47.0); LYMPH # 1.8 10*3/uL (1.3-4.4); LYMPH % 17.8 % (27.0-41.0); MEAN CELL VOLUME 81.4 fl (81.0-99.0); MEAN CORPUSCULAR HGB 27.1 pg (27.0-31.0); MEAN CORPUSCULAR HGB CONC 33.3 g/dl (33.0-37.0); MEAN PLATELET VOLUME 10.3 fl (9.6-12.3); MONO # 1.3 10*3/uL (0.1-1.0); MONO % 12.6 % (3.0-9.0); NEUT # 6.6 10*3/uL (2.3-7.9); NEUT % 64.9 % (47.0-73.0); PLATELET COUNT AUTOMATED 322 10*3/uL (130-400); RED CELL DISTRI WIDTH 14.1 % (0-14.5); WHITE BLOOD COUNT 10.2 10*3/uL (4.8-10.8)
[2021-06-03 06:55] LABS: ALKALINE PHOSPHATASE 76 U/L (45-117); BUN 9 mg/dl (7-24); CHLORIDE 104 mmol/L (98-107); CREATININE 0.73 mg/dL (0.55-1.02); POTASSIUM 3.7 mmol/L (3.5-5.1); SGOT/AST 20 IU/L (3-35); SGPT/ALT 26 U/L (12-78); SODIUM 134 mmol/L (136-145); TOTAL PROTEIN 6.4 gm/dL (6.4-8.2)
[2021-06-03 07:59] VITALS: BP 116/60
[2021-06-03 11:19] VITALS: BP 126/64
[2021-06-03] MEDS ORDERED: CIPRO500 MG PO (14:09)
== END 2021-06-03 14:06 | disposition home health service (06) | DRG 689 ==
LOC: ED 16:04 → 5E 19:05 → EDHOLD 19:05 → 5E 20:01
PROVIDERS: Emergency Medicine; Internal Medicine; Student in an Organized Health Care Education/Training Program; ADMIT Family Medicine; ATTEND Family Medicine
DX: N39.0 Urinary tract infection, site not specified (principal); N17.0 Acute kidney failure with tubular necrosis; E44.0 Moderate protein-calorie malnutrition; E87.1 Hypo-osmolality and hyponatremia; E86.0 Dehydration; Z20.822 Contact with and (suspected) exposure to COVID-19; R19.7 Diarrhea, unspecified; E87.8 Other disorders of electrolyte and fluid balance, not elsewhere classified; R73.9 Hyperglycemia, unspecified; E83.52 Hypercalcemia; R26.2 Difficulty in walking, not elsewhere classified; E03.9 Hypothyroidism, unspecified; Z82.49 Family history of ischemic heart disease and other diseases of the circulatory system; Z90.710 Acquired absence of both cervix and uterus; Z79.899 Other long term (current) drug therapy; Z68.27 Body mass index [BMI] 27.0-27.9, adult

== ENCOUNTER 2023-12-16 12:38 | Emergency (ER) | payer MEDICARE, OTHER ==
[~2023-12-16] VITALS: Ht 162.5 cm; Wt 72.1 kg
[~2023-12-16 12:38] MED LIST changes: +CIPRO500 MG PO
[2023-12-16] MEDS ORDERED: ATROPINE SULFATE 1 MG/10 ML SYR IV ONE (13:05)
[2023-12-16 13:20] LABS: BASO % 0.8 % (0.0-1.0); EOS # 0.1 10*3/uL (0.0-0.4); EOS % 2.4 % (1.0-4.0); HEMATOCRIT 40.9 % (37.0-47.0); LYMPH # 1.4 10*3/uL (1.3-4.4); LYMPH % 28.4 % (27.0-41.0); MEAN CELL VOLUME 88.7 fl (81.0-99.0); MEAN CORPUSCULAR HGB CONC 31.5 g/dl (33.0-37.0); MEAN PLATELET VOLUME 10.3 fl (9.6-12.3); MONO # 0.5 10*3/uL (0.1-1.0); MONO % 9.5 % (3.0-9.0); NEUT # 2.9 10*3/uL (2.3-7.9); NEUT % 58.7 % (47.0-73.0); PLATELET COUNT AUTOMATED 190 10*3/uL (130-400); RED BLOOD COUNT 4.61 10*6/uL (4.10-5.10); RED CELL DISTRI WIDTH 14.6 % (0-14.5)
[2023-12-16 13:31] LABS: ACT PARTIAL THROMBO TIME 25.6 SECONDS (20.0-32.1)
[2023-12-16 13:50] LABS: POTASSIUM 3.8 mmol/L (3.4-5.1); TOTAL PROTEIN 6.6 gm/dL (6.0-8.0)
== END 2023-12-16 17:08 | disposition short-term general hospital (02) ==
LOC: ED 12:38
PROVIDERS: Emergency Medicine
DX: S52.532A Colles' fracture of left radius, initial encounter for closed fracture (principal); R00.1 Bradycardia, unspecified; I44.30 Unspecified atrioventricular block; R10.2 Pelvic and perineal pain; Z98.890 Other specified postprocedural states; Z90.710 Acquired absence of both cervix and uterus; W19.XXXA Unspecified fall, initial encounter; Y93.89 Activity, other specified; Y92.099 Unspecified place in other non-institutional residence as the place of occurrence of the external cause; Y99.8 Other external cause status

== ENCOUNTER 2024-01-17 15:57 | Inpatient (IN) | payer MEDICARE, OTHER ==
[~2024-01-17] VITALS: Ht 157.4 cm; Wt 91.7 kg
[2024-01-17] MEDS ORDERED: SODIUM CHLORIDE 0.9% 1,000 ML IV ONE (16:20)
[2024-01-17 16:53] LABS: BASO # 0.1 10*3/uL (0.0-0.1); BASO % 0.6 % (0.0-1.0); EOS # 0.1 10*3/uL (0.0-0.4); EOS % 1.4 % (1.0-4.0); HEMATOCRIT 41.3 % (37.0-47.0); LYMPH # 1.1 10*3/uL (1.3-4.4); LYMPH % 13.4 % (27.0-41.0); MEAN CELL VOLUME 87.7 fl (81.0-99.0); MEAN PLATELET VOLUME 10.7 fl (9.6-12.3); MONO # 0.9 10*3/uL (0.1-1.0); MONO % 10.6 % (3.0-9.0); NEUT # 5.9 10*3/uL (2.3-7.9); NEUT % 73.6 % (47.0-73.0); PLATELET COUNT AUTOMATED 193 10*3/uL (130-400); RED BLOOD COUNT 4.71 10*6/uL (4.10-5.10); RED CELL DISTRI WIDTH 14.6 % (0-14.5)
[2024-01-17 17:03] LABS: ACT PARTIAL THROMBO TIME 27.7 SECONDS (20.0-32.1)
[2024-01-17 17:08] VITALS: BP 144/66
[2024-01-17 17:10] LABS: ALKALINE PHOSPHATASE 68 U/L (46-116); BUN 14 mg/dl (9-23); CHLORIDE 104 mmol/L (98-107); POTASSIUM 3.1 mmol/L (3.4-5.1); SGPT/ALT 17 U/L (5-49); TOTAL PROTEIN 6.6 gm/dL (6.0-8.0)
[2024-01-17] MEDS ORDERED: POTASSIUM CHLORIDE IN WATER 100 ML IV SCH (18:00)
[2024-01-17 18:12] LABS: BILIRUBIN Negative (Negative); BLOOD Negative (Negative); CLARITY Cloudy (Clear); COLOR Dark Yellow (Yellow); GLUCOSE Negative (Negative); KETONE 1+ (Negative); LEUKO ESTERASE 2+ (Negative); NITRITE Negative (Negative); PH 5.5 (4.5-8.0); UROBILINOGEN 0.2 E.U./dl (0.0-1.0)
[2024-01-17 18:40] LABS: BACTERIA 3+; WBC 16-20 wbc/hpf (0-5); YEAST 2+
[2024-01-17] MEDS ORDERED: TEMAZEPAM 15 MG CAP PO PRN (19:10)
[2024-01-17] MEDS ORDERED: MORPHINE Sulfate 2 MG/ML SYR IV PRN (19:10)
[2024-01-17] MEDS ORDERED: BISACODYL 10 MG SUPP R PRN (19:10)
[2024-01-17] MEDS ORDERED: BISACODYL 5 MG TAB PO PRN (19:10)
[2024-01-17] MEDS ORDERED: ACETAMINOPHEN 650 MG SUPP R PRN (19:10)
[2024-01-17] MEDS ORDERED: Acetaminophen/Hydrocodone 5 MG/325 MG TABLET PO PRN (19:10)
[2024-01-17] MEDS ORDERED: ACETAMINOPHEN 325 MG TAB PO PRN (19:10)
[2024-01-17] MEDS ORDERED: Magnesium Hydroxide 30 ML UDC PO PRN (19:10)
[2024-01-17 19:40] VITALS: BP 129/54
[2024-01-17] MEDS ORDERED: LEVOFLOXACIN 150 ML IV SCH (20:00)
[2024-01-17 22:41] VITALS: BP 141/61
[2024-01-18] MEDS ORDERED: SODIUM CHLORIDE 0.9% 1,000 ML IV ONE
[2024-01-18] MEDS ORDERED: Levothyroxine Sodium 125 MCG TAB PO SCH (06:00)
[2024-01-18 06:58] LABS: BASO # 0.1 10*3/uL (0.0-0.1); BASO % 0.8 % (0.0-1.0); EOS # 0.3 10*3/uL (0.0-0.4); EOS % 4.7 % (1.0-4.0); HEMATOCRIT 36.3 % (37.0-47.0); LYMPH # 1.3 10*3/uL (1.3-4.4); LYMPH % 20.2 % (27.0-41.0); MEAN CELL VOLUME 86.2 fl (81.0-99.0); MEAN CORPUSCULAR HGB 28.5 pg (27.0-31.0); MEAN CORPUSCULAR HGB CONC 33.1 g/dl (33.0-37.0); MEAN PLATELET VOLUME 11.3 fl (9.6-12.3); MONO # 0.7 10*3/uL (0.1-1.0); MONO % 10.4 % (3.0-9.0); NEUT # 4.1 10*3/uL (2.3-7.9); NEUT % 63.3 % (47.0-73.0); PLATELET COUNT AUTOMATED 186 10*3/uL (130-400); RED BLOOD COUNT 4.21 10*6/uL (4.10-5.10); RED CELL DISTRI WIDTH 14.9 % (0-14.5); WHITE BLOOD COUNT 6.5 10*3/uL (4.8-10.8)
[2024-01-18 07:19] LABS: ALKALINE PHOSPHATASE 59 U/L (46-116); BUN 13 mg/dl (9-23); CHLORIDE 107 mmol/L (98-107); CHOLESTEROL 191 mg/dL (<200); FREE T4 1.26 ng/dl (0.89-1.76); LDL CHOLESTEROL 121 mg/dL (9-159); SGPT/ALT 14 U/L (5-49); TOTAL PROTEIN 5.7 gm/dL (6.0-8.0); TRIGLYCERIDES 108 mg/dl (<150)
[2024-01-18] MEDS ORDERED: POTASSIUM CHLORIDE 20 MEQ TAB PO ONE (07:35)
[2024-01-18 08:00] VITALS: BP 147/54
[2024-01-18 08:40] LABS: VITAMIN D, 25-HYDROXY 34.5 ng/mL (30-100)
[2024-01-18] MEDS ORDERED: Enoxaparin Sodium 40 MG/0.4 ML SYR SC SCH (10:00)
[2024-01-18 11:45] VITALS: BP 143/64
[2024-01-18 16:00] VITALS: BP 117/55
[2024-01-18 20:00] VITALS: BP 116/76
[2024-01-19] VITALS: BP 118/62
[2024-01-19 08:00] VITALS: BP 136/65
[2024-01-19 12:00] VITALS: BP 120/62
[2024-01-19 16:00] VITALS: BP 130/52
[2024-01-19 20:00] VITALS: BP 134/68
[2024-01-20] VITALS: BP 133/68
[2024-01-20 06:46] LABS: BUN 12 mg/dl (9-23); CHLORIDE 107 mmol/L (98-107); POTASSIUM 3.7 mmol/L (3.4-5.1)
[2024-01-20 08:00] VITALS: BP 141/76
[2024-01-20] MEDS ORDERED: LEVOFLOXACIN750 M2 PO (11:04)
[2024-01-20 12:00] VITALS: BP 144/60
== END 2024-01-20 13:48 | DRG 641 ==
LOC: ED 15:57 → EDHOLD 18:24 → 4E 18:24
PROVIDERS: Internal Medicine; Student in an Organized Health Care Education/Training Program; ADMIT Internal Medicine; ATTEND Internal Medicine
DX: E87.6 Hypokalemia (principal); I44.2 Atrioventricular block, complete; Z95.0 Presence of cardiac pacemaker; R80.9 Proteinuria, unspecified; Z96.1 Presence of intraocular lens; E03.9 Hypothyroidism, unspecified; E55.9 Vitamin D deficiency, unspecified; R82.71 Bacteriuria; Z90.710 Acquired absence of both cervix and uterus; Z82.3 Family history of stroke; Z82.49 Family history of ischemic heart disease and other diseases of the circulatory system; Z79.899 Other long term (current) drug therapy; Z98.41 Cataract extraction status, right eye; Z98.51 Tubal ligation status